=== PATIENT | female | born 1945 | race Caucasian/White ===

== ENCOUNTER → 2021-11-24 09:50 | Outpatient (BNVA) | payer MEDICARE, SELFPAY | PROVIDERS: PCP Family Medicine; Visit Provider Internal Medicine Cardiovascular Disease | DX: R07.9 Chest pain, unspecified (principal); R00.2 Palpitations; Z86.79 Personal history of other diseases of the circulatory system; Z87.891 Personal history of nicotine dependence | CPT/HCPCS: 99203 ==

== ENCOUNTER → 2022-02-24 10:57 | Outpatient (BNVA) | payer MEDICARE, SELFPAY | PROVIDERS: PCP Family Medicine; Visit Provider Internal Medicine Cardiovascular Disease | DX: R00.2 Palpitations (principal); F41.9 Anxiety disorder, unspecified; I49.1 Atrial premature depolarization; M25.551 Pain in right hip; G89.29 Other chronic pain; Z87.891 Personal history of nicotine dependence | CPT/HCPCS: 99214 ==

== ENCOUNTER 2024-05-28 14:09 | Outpatient (CLI) | payer BC, SELFPAY ==
--- NOTE | 2024-05-28 14:14 | XR_ITS ---
WS: [id number] Cervical spine, 5 views including both obliques, 05/28/2024 Clinical Data: RIGHT LEFT ARM NUMBNESS TINGLING Comparison: None. Findings: No compression fractures are seen. There is degenerative disc narrowing at multiple levels, C3-C4, C4-C5, C5-C6 and C6-C7. There is loss of the normal lordotic curvature. There are anterior os teophytes at all levels from C3-C7 and posterior osteophytes from C5-T1. The facet joints C2-C3 are f used. There is facet joint arthritis at all levels from C3-C7. The oblique images demonstrate left fo raminal narrowing at C5-C6 and C6-C7. There is no prevertebral soft tissue swelling. The odontoid is unremarkable. The soft tissues of the neck and the lung apices are normal. XR/XR cervical spine 4-5V [id number] Impression: 1. Multilevel degenerative disc narrowing, facet joint arthritis and osteoarthr itic spurring. 2. Left foraminal narrowing at C5-C6 and C6-C7.
== END 2024-05-28 14:10 | disposition home or self-care (01) ==
PROVIDERS: Absent Provider Chiropractor; PCP Family Medicine; Visit Provider Family Medicine
DX: R20.2 Paresthesia of skin (principal); M50.31 Other cervical disc degeneration, high cervical region; M25.78 Osteophyte, vertebrae; M47.892 Other spondylosis, cervical region; M48.02 Spinal stenosis, cervical region; M43.22 Fusion of spine, cervical region
CPT/HCPCS: 72050

== ENCOUNTER 2024-07-25 14:40 | Outpatient (CLI) | payer BC, SELFPAY ==
[2024-07-25 15:48] LABS: Chol HDL Ratio 3.62 mg/dL (0.0-4.40); Cholesterol 246 mg/dL (0-200); Glucose 100 mg/dL (65-115); HDL Cholesterol 68 mg/dL (60-100); LDL Cholesterol Calculated 159 mg/dL (50-129); LDL HDL Ratio 2.34 RATIO (0.00-3.22); Triglycerides 95 mg/dL (0-150)
[2024-07-25 16:04] LABS: Estmated Average Glucose 103; Hemoglobin A1C 5.2 % (4.0-6.0)
== END 2024-07-25 14:41 | disposition home or self-care (01) ==
LOC: LAB 14:42
PROVIDERS: PCP Family Medicine; Visit Provider Family Medicine
DX: Z13.6 Encounter for screening for cardiovascular disorders (principal)
CPT/HCPCS: 36415; 80061; 82947; 83036